=== PATIENT | male | born 1955 | race Caucasian/White ===

== ENCOUNTER 2016-09-16 23:00 | Emergency (ER) | payer OTHER ==
--- NOTE | ~2016-09-16 | CT4 ---
[facility]. [facility] A Service of [facility] RADIOLOGY TEXT RESULTS PATIENT: ELOISA RAO LOCATION: SED : 55 UNIT #: [id number] AGE: [address]: Simón Valverde MD SEX: M ORDER DR: [id number] [place] [id number] E MR#: [id number] Acc #: [id number] NAME: ELOISA RAO : 1955 SEX: M STUDY DATE/TIME: 09/17/2016 0:03 UNIT: SED ROOM: STUDY DESCRIPTION: CT Abd and Pelv Wo Cont Attending Physician: Simón Valverde M.D. Ordering Physician: Simón Valverde M.D. Primary Care Physician: Sharona Ham MEDICAL IMAGING REPORT This report is preliminary unless electronic signature is present. EXAM CT abdomen and pelvis without contrast Date: 09/17/2016 00:03 HISTORY 60-year-old male with right flank pain for 3-4 days. History of kidney stones. COMPARISON CT abdomen and pelvis without contrast 11/16/2013. PROCEDURE 3 mL noncontrast axial images through the abdomen and pelvis. Enteric contrast was not administered. Sagittal and coronal reformatted images were obtained. This CT exam was performed with one or more of the following radiation dose reduction techniques: automatic exposure control, adjustment of mA and/or kV according to patient size, and iterative reconstruction. FINDINGS Abdomen: Small nonobstructing bilateral renal calculi are present. However, no ureteral calculus, hydronephrosis or hydroureter is seen. Chronic-appearing mild fibrotic changes are present within the right lower lobe. Nodular density in the right lower lobe just above the diaphragm measuring approximately 1 cm is unchanged from 11/16/2013 in keeping with benign finding. The liver, gallbladder, spleen, pancreas, adrenals are normal. Unopacified bowel within normal limits. Appendectomy. No free air or free fluid. Pelvis: Urinary bladder wall is mildly and generally thickened, may represent changes of cystitis. No perivesical inflammatory stranding is [facility] A Service of [facility] RADIOLOGY TEXT RESULTS PATIENT: ELOISA RAO LOCATION: SED : 55 UNIT #: [id number] AGE: [address]: Simón Valverde MD SEX: M ORDER DR: seen. Prostate gland is normal. Rectum is within normal limits. No acute osseous abnormalities are identified. Rudimentary S1-S2 disc. Posterior disc osteophyte formation at L5-S1. IMPRESSION 1. Mild concentric thickening of the urinary bladder wall is nonspecific. It could represent changes of cystitis in the appropriate clinical context. 2. Tiny nonobstructing bilateral intrarenal calculi. No ureteral calculus or hydronephrosis. 3. Appendectomy. 4. Nodular density in the right base unchanged from 2014 in keeping with benign finding. 1. Dictated by... Apryl Sotelo M.D. THIS IS AN ELECTRONICALLY VERIFIED REPORT Apryl Sotelo M.D. at 09/17/2016 10:02 PM Bernadette TD: 09/17/2016 07:01 JOB #: [id number] MEDICAL IMAGING REPORT
[~2016-09-16 23:00] MED LIST: ASPIRIN81 M1; DARVOCET-N 1001 TAB PO; FLOMAX0.4 M1 PO; KEFLEX PO; LEVEMIR100 UNITS/ SUBQ; LIPITOR20 MG PO; LISINOPRIL20 MG; LISINOPRIL5 MG PO; METFORMIN HCL500 M1; NAPROSYN500 MG PO; NO MEDICATIONS; NOVOLOG100 U/ML SUBQ
[2016-09-16 23:48] LABS: URINE SOURCE CLEAN CATCH
[2016-09-16 23:50] LABS: URINE APPEARANCE CLEAR; URINE BILIRUBIN NEG (NEG); URINE BLOOD TRACE-INTACT (NEG); URINE COLOR YELLOW; URINE GLUCOSE NEG (NORM); URINE KETONE TRACE (NEG); URINE LEUKOCYTE ESTERASE NEG (NEG); URINE NITRATE NEG (NEG); URINE PROTEIN 2+ (NEG); URINE SPECIFIC GRAVITY >=1.030 (1.003-1.035); URINE UROBILINOGEN 0.2 MG/DL (NORM)
[2016-09-16 23:51] LABS: MICRO INDICATED? YES
[2016-09-16 23:59] LABS: CULTURE INDICATED? NO; URINE BACTERIA NEG (NEG); URINE MUCUS PRESENT; URINE SQUAMOUS EPITHELIAL CELL FEW /[HPF]; URINE WBC 0-2 /[HPF] (0-5)
== END 2016-09-17 01:05 | disposition home or self-care (01) ==
LOC: SED 23:00
PROVIDERS: Emergency Medicine
DX: N20.0 Calculus of kidney (principal); R31.9 Hematuria, unspecified; E11.9 Type 2 diabetes mellitus without complications; I10 Essential (primary) hypertension; Z98.890 Other specified postprocedural states
CPT/HCPCS: 74176; 81003; 99284